=== PATIENT | female | born 1995 | race American Indian/Alaskan Native ===

== ENCOUNTER 2018-05-31 17:07 | Emergency (ER) | payer OTHER ==
[2018-05-31 17:08] VITALS: BMI 20.5
[2018-05-31 17:13] VITALS: BP 135/72; PULSE 82; RESP 20; TEMP 99; O2SAT 100
--- NOTE | 2018-05-31 17:37 | C.PDOC ---
History Of Present Illness 22 y/o female presents to the ED complaining of persistent pain to the right breast, ongoing for over 2 months. Patient recently was found to have a breast cyst, and had biopsy done in March with interventional radiologist Dr. Maldonado. Since then she reports persistent pain. She was initially referred by Dr. Guy, but patient has not followed up with Dr. Guy since then. Otherwise she denies any fevers, chills, nipple discharge, or other complaints. Time Seen by Provider: 05/31/18 17:21 Chief Complaint (Nursing): Breast Problem History Per: Patient History/Exam Limitations: no limitations Onset/Duration Of Symptoms: Days Current Symptoms Are (Timing): Still Present Past Medical History Reviewed: Historical Data, Nursing Documentation, Vital Signs Vital Signs: Last Vital Signs Temp 99 F 05/31/18 17:10 Pulse 82 05/31/18 17:10 Resp 20 05/31/18 17:10 BP 135/72 05/31/18 17:10 Pulse Ox 100 05/31/18 17:10 - Medical History PMH: Anxiety, Asthma, Bronchitis, Post Traumatic Stress Disorder, Seizures Denies: Chronic Kidney Disease Other PMH: PTSD Surgical History: No Surg Hx Family History: States: No Known Family Hx - Social History Hx Tobacco Use: No Hx Alcohol Use: No Hx Substance Use: No - Immunization History Hx Tetanus Toxoid Vaccination: No Hx Influenza Vaccination: No Hx Pneumococcal Vaccination: No Review Of Systems Constitutional: Negative for: Fever, Chills Cardiovascular: Negative for: Chest Pain Respiratory: Negative for: Shortness of Breath Musculoskeletal: Positive for: Other (Pain to right breast) Skin: Negative for: Rash Physical Exam - Physical Exam Appears: Non-toxic, No Acute Distress Skin: Warm, Dry, Other (cystic breast tissue noted to the right lateral breast, no obvious masses or nipple discharge; no change in skin color or lymphadenopathy; no focal tenderness) Head: Atraumatic, Normacephalic Eye(s): bilateral: Normal Inspection Oral Mucosa: Moist Neck: Supple Chest: No Deformity, No Tenderness Cardiovascular: Rhythm Regular, No Murmur Respiratory: Normal Breath Sounds, No Accessory Muscle Use, No Wheezing Extremity: Bilateral: Atraumatic, Normal Color And Temperature Neurological/Psych: Oriented x3, Normal Speech ED Course And Treatment O2 Sat by Pulse Oximetry: 100 (RA) Pulse Ox Interpretation: Normal Progress Note: Reassured patient there are no signs of acute infection at this time. Advised she needs to follow up with Dr. Guy for further evaluation. Yuly linda is agreeable to and understanding of discharge plan. Disposition - Disposition Referrals: Ernesto Guy MD [Staff Provider] - Disposition: HOME/ ROUTINE Disposition Time: 17:41 Condition: STABLE Additional Instructions: FOLLOW UP WITH BREAST BUCKLE ATTACHER WITHIN 1-2 DAYS. 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 - Scribe Statement The provider has reviewed the documentation as recorded by the Scribe (Dia Carbajal) All medical record entries made by the Scribe were at my direction and personally dictated by me. I have reviewed the chart and agree that the record accurately reflects my personal performance of the history, physical exam, medical decision making, and the department course for this patient. I have also personally directed, reviewed, and agree with the discharge instructions and disposition.
== END 2018-05-31 17:48 | disposition home or self-care (01) ==
LOC: C.ER 17:07
DX: N64.4 Mastodynia (principal)

== ENCOUNTER 2018-07-09 09:41 | Observation (INO) | payer OTHER ==
[2018-07-09 09:42] VITALS: BMI 20.5
[2018-07-09 10:19] LABS: BASO % 0.5 % (0.0-2.0); HEMOGLOBIN 11.9 g/dL (11.0-16.0); LYMPH # 1.4 K/uL (1.0-4.3); LYMPH % 32.7 % (20.0-40.0); MEAN CELL VOLUME 91.1 fL (81.0-99.0); MEAN CORPUSCULAR HGB CONC 34.1 g/dL (33.0-37.0); MEAN PLATELET VOLUME 8.4 fL (7.2-11.7); MONO # 0.5 K/uL (0.0-0.8); MONO % 11.9 % (0.0-10.0); NEUT # 2.4 K/uL (1.8-7.0); NEUT % 53.9 % (50.0-75.0); RBC 3.84 Mil/uL (3.80-5.20); RED CELL DISTRIBUTION WIDTH 14.7 % (11.5-14.5); WHITE BLOOD COUNT 4.4 K/uL (4.8-10.8)
--- NOTE | 2018-07-09 10:29 | C.PDOC ---
History Of Present Illness 22 y/o F c PMHx asthma p/w chest pain and dyspnea today. 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 Currently has chest pain, which is sharp and R parasternal, nonradiating. Denies fever, trauma, nausea, vomiting. Patient had syncopal episode in the past, intubated due to GCS less than 8, extubated 4 days later, state no found cause. Time Seen by Provider: 07/09/18 09:52 Chief Complaint (Nursing): Shortness Of Breath Past Medical History Vital Signs: Last Vital Signs Temp 99.3 F 07/09/18 09:50 Pulse 74 07/09/18 09:50 Resp 17 07/09/18 09:50 BP 132/81 07/09/18 09:50 Pulse Ox 99 07/09/18 09:50 - Medical History PMH: Anxiety, Asthma, Bronchitis, Post Traumatic Stress Disorder, Seizures Denies: Chronic Kidney Disease Family History: States: No Known Family Hx - Social History Hx Tobacco Use: No Hx Alcohol Use: No Hx Substance Use: No - Immunization History Hx Tetanus Toxoid Vaccination: No Hx Influenza Vaccination: No Hx Pneumococcal Vaccination: No Review Of Systems Except As Marked, All Systems Reviewed And Found Negative. Constitutional: Negative for: Fever Gastrointestinal: Negative for: Vomiting Physical Exam - Physical Exam Additional Physical Exam Comments: Constitutional: No acute distress. Head: Normocephalic. Atraumatic. Eyes: PERRL. ENT: Moist mucous membranes. Neck: Supple. Cardiovascular: Regular rate. Radial pulse 2+ bilaterally. Chest: Reproducible chest tenderness. Respiratory: Clear to auscultation bilaterally. GI: Soft. Nontender. Nondistended. Back: No CVA tenderness. Musculoskeletal: No tenderness or swelling of extremities.z Skin: No rash. Neurologic: Alert, no focal deficit. ED Course And Treatment - Laboratory Results Result Diagrams: 07/09/18 10:15 07/09/18 10:15 O2 Sat by Pulse Oximetry: 99 Medical Decision Making Medical Decision Making: EKG NSR 77 bpm, no ST/T wave changes. ASA administered. Dr. Elliott accepts patient for consultation, will obtain echo. Dr. Nettles accepts to medical service. FINDINGS: LINES AND TUBES: None. LUNG AND PLEURA: The lungs are well inflated and clear. No pleural effusion or pneumothorax. HEART AND MEDIASTINUM: The heart is not enlarged. No aortic atherosclerotic calcification present. The hilar and mediastinal contours are within normal limits. SKELETAL STRUCTURES: The bony structures are within normal limits for the patient's age. VISUALIZED UPPER ABDOMEN: Normal. OTHER FINDINGS: None. IMPRESSION: No active pulmonary disease. Disposition - Disposition Disposition: HOSPITALIZED Disposition Time: 10:53 Condition: FAIR Forms: [employer] (Amharic) - POA Core Measure Indicators: Chest Pain - Clinical Impression Clinical Impression: Dyspnea, Chest pain
[2018-07-09 10:32] LABS: ALB/GLOB RATIO 1.3 (1.0-2.1); ALBUMIN 4.2 g/dL (3.5-5.0); ALT/SGPT 19 U/L (9-52); AST/SGOT 19 U/L (14-36); BLOOD UREA NITROGEN 8 mg/dL (7-17); CALCIUM 8.9 mg/dl (8.6-10.4); GFR NON-AFRICAN AMERICAN > 60; INR 1.2; PARTIAL THROMBOPLASTIN TIME 31 SECONDS (21-34); PROTHROMBIN TIME 12.7 SECONDS (9.7-12.2)
[2018-07-09 10:41] LABS: B-TYPE NATRIURETIC PEPTIDE 37.3 pg/mL (0-450)
[2018-07-09 10:48] LABS: CK-MB < 0.22 ng/mL (0.0-3.38)
--- NOTE | 2018-07-09 10:52 | RAD ---
Date of service: 07/09/2018 HISTORY: Dyspnea COMPARISON: 04/04/2016 TECHNIQUE: Chest PA and lateral FINDINGS: LINES AND TUBES: None. LUNG AND PLEURA: The lungs are well inflated and clear. No pleural effusion or pneumothorax. HEART AND MEDIASTINUM: The heart is not enlarged. No aortic atherosclerotic calcification present. The hilar and mediastinal contours are within normal limits. SKELETAL STRUCTURES: The bony structures are within normal limits for the patient's age. VISUALIZED UPPER ABDOMEN: Normal. OTHER FINDINGS: None. IMPRESSION: No active pulmonary disease.
[2018-07-09 10:57] LABS: D DIMER < 200 ng/mlDDU (0-243)
[2018-07-09 11:04] LABS: SQUAMOUS EPITHIAL 2 /hpf (0-5); URINE BILIRUBIN NEGATIVE (NEGATIVE); URINE BLOOD NEGATIVE (NEGATIVE); URINE CLARITY Clear (Clear); URINE COLOR Yellow (YELLOW); URINE GLUCOSE (UA) NORMAL (Normal); URINE LEUKOCYTE ESTERASE NEG Leu/uL (Negative); URINE PROTEIN NEGATIVE (NEGATIVE); URINE UROBILINOGEN NORMAL mg/dL (0.2-1.0)
[2018-07-09 11:07] LABS: HCG,QUALITATIVE URINE NEGATIVE (NEGATIVE)
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
--- NOTE | 2018-07-09 14:14 | CP.PCM.HP ---
History of Present Illness - History of Present Illness History of Present Illness: 22 years old woman admitted with chest pain and shortness of breath during 3 minutes of stress test today. Patient was being evaluated for chest pain and shortness of breath as an outpatient stress test and patient got acutely short o f breath during the stress test stress test was terminated there was no any acute ST-T changes. Patient was evaluated in the ER chest x-ray did not show any pneumothorax. Patient had been complaining of chest pain or palpitation for quite some time. Patient has a history of asthma and has been admitted in the hospital and danis required intubation. Patient also has a history of posttraumatic stress syndrome and has been seeing a psychiatrist. Patient also has a severe anxiety and panic attacks. There is no history of sickle cell. Present on Admission - Present on Admission Any Indicators Present on Admission: No Review of Systems - Review of Systems All systems: reviewed and no additional remarkable complaints except (shortness of breath wheezing and atypical chest pain) Past Patient History - Past Medical History & Family History Past Medical History?: Yes - Past Social History Smoking Status: Never Smoked - CARDIAC Hx Cardiac Disorders: No - PULMONARY Hx Asthma: Yes Hx Bronchitis: Yes - NEUROLOGICAL Hx Seizures: Yes - HEENT Hx HEENT Problems: No - RENAL Hx Chronic Kidney Disease: No - ENDOCRINE/METABOLIC Hx Endocrine Disorders: No - HEMATOLOGICAL/ONCOLOGICAL Hx Blood Disorders: No Hx Blood Transfusions: No - INTEGUMENTARY Hx Dermatological Problems: No - MUSCULOSKELETAL/RHEUMATOLOGICAL Hx Musculoskeletal Disorders: No Hx Falls: No - GASTROINTESTINAL Hx Gastrointestinal Disorders: No - PSYCHIATRIC Hx Anxiety: Yes Hx Post Traumatic Stress Disorder: Yes Hx Substance Use: No - SURGICAL HISTORY Hx Surgeries: No - ANESTHESIA Hx Anesthesia: No Hx Anesthesia Reactions: No Hx Malignant Hyperthermia: No Meds Allergies/Adverse Reactions: Allergies Allergy/AdvReac Type Severity Reaction Status Date / Time albuterol AdvReac Intermediate Verified 05/31/18 17:14 Physical Exam - Constitutional Appears: Well - Head Exam Head Exam: ATRAUMATIC, NORMAL INSPECTION, NORMOCEPHALIC - Eye Exam Eye Exam: EOMI, Normal appearance, PERRL Pupil Exam: NORMAL ACCOMODATION, PERRL - ENT Exam ENT Exam: Mucous Membranes Moist, Normal Exam - Neck Exam Neck exam: Positive for: Normal Inspection - Respiratory Exam Respiratory Exam: Clear to Auscultation Bilateral, Rhonchi, NORMAL BREATHING PATTERN - Cardiovascular Exam Cardiovascular Exam: REGULAR RHYTHM - GI/Abdominal Exam GI & Abdominal Exam: Normal Bowel Sounds, Soft. absent: Tenderness - Extremities Exam Extremities exam: Positive for: normal inspection - Back Exam Back exam: NORMAL INSPECTION Results - Vital Signs Recent Vital Signs: Last Vital Signs Temp 98.5 F 07/09/18 13:25 Pulse 72 07/09/18 13:25 Resp 12 07/09/18 13:25 BP 114/72 07/09/18 13:25 Pulse Ox 97 07/09/18 13:25 - Labs Result Diagrams: 07/09/18 10:15 07/09/18 10:15 Labs: Laboratory Results - last 24 hr 07/09/18 07/09/18 07/09/18 10:15 10:15 10:15 WBC 4.4 L RBC 3.84 Hgb 11.9 Hct 34.9 MCV 91.1 MCH 31.0 MCHC 34.1 RDW 14.7 H Plt Count 186 MPV 8.4 Neut % (Auto) 53.9 Lymph % (Auto) 32.7 [place] % (Auto) 11.9 H Eos % (Auto) 1.0 Baso % (Auto) 0.5 Neut # (Auto) 2.4 Lymph # (Auto) 1.4 [place] # (Auto) 0.5 Eos # (Auto) 0.0 Baso # (Auto) 0.0 PT 12.7 H INR 1.2 APTT 31 D-Dimer, Quantitative < 200 Sodium 140 Potassium 4.2 Chloride 103 Carbon Dioxide 27 Anion Gap 13 BUN 8 Creatinine 0.7 Est GFR ( Amer) > 60 Est GFR (Non-Af Amer) > 60 Random Glucose 81 Calcium 8.9 Total Bilirubin 0.4 AST 19 ALT 19 Alkaline Phosphatase 55 Total Creatine Kinase 84 CK-MB (Mass) < 0.22 Troponin I < 0.0120 NT-Pro-B Natriuret Pep 37.3 Total Protein 7.6 Albumin 4.2 Globulin 3.4 Albumin/Globulin Ratio 1.3 Urine Color Urine Clarity Urine pH Ur Specific [place] Urine Protein Urine Glucose (UA) Urine Ketones Urine Blood Urine Nitrate Urine Bilirubin Urine Urobilinogen Ur Leukocyte Esterase Urine WBC (Auto) Urine RBC (Auto) Ur Squamous Epith Cells Urine HCG, Qual 07/09/18 10:45 WBC RBC Hgb Hct MCV MCH MCHC RDW Plt Count MPV Neut % (Auto) Lymph % (Auto) [place] % (Auto) Eos % (Auto) Baso % (Auto) Neut # (Auto) Lymph # (Auto) [place] # (Auto) Eos # (Auto) Baso # (Auto) PT INR APTT D-Dimer, Quantitative Sodium Potassium Chloride Carbon Dioxide Anion Gap BUN Creatinine Est GFR ( Amer) Est GFR (Non-Af Amer) Random Glucose Calcium Total Bilirubin AST ALT Alkaline Phosphatase Total Creatine Kinase CK-MB (Mass) Troponin I NT-Pro-B Natriuret Pep Total Protein Albumin Globulin Albumin/Globulin Ratio Urine Color Yellow Urine Clarity Clear Urine pH 5.0 Ur Specific [place] 1.017 Urine Protein Negative Urine Glucose (UA) Normal Urine Ketones Negative Urine Blood Negative Urine Nitrate Negative Urine Bilirubin Negative Urine Urobilinogen Normal Ur Leukocyte Esterase Neg Urine WBC (Auto) 1 Urine RBC (Auto) < 1 Ur Squamous Epith Cells 2 Urine HCG, Qual Negative Assessment & Plan (1) Chest pain Status: Acute Comment: we will consult with Dr. Castro her cardiolo and do further cardiac (2) Asthma Status: Acute Comment: pulmonary consult on board. Continue bronchodilatords
[2018-07-09 15:51] VITALS: RESP 20
[2018-07-09] MEDS: MethylPREDNISolone 40 mg Vial IVP SCH ×2 (16:08→22:16)
[2018-07-09] MEDS: Ipratropium 0.02% Inhal Soln (0.5 mg/2.5 ml) UD IH SCH (19:56)
--- NOTE | 2018-07-09 22:02 | CP.PCM.PN ---
Subjective - Date & Time of Evaluation Date of Evaluation: 07/09/18 Time of Evaluation: 21:59 - Subjective Subjective: Patient admitted for severe dyspnea during the stress test ECHO and labs unremarkable Patient has hx of Asthma likely Asthma exacerbation No further cardiac work up at this time Will follow Objective - Vital Signs/Intake and Output Vital Signs (last 24 hours): Temp Pulse Resp BP Pulse Ox 98.2 F 89 20 113/76 98 07/09/18 15:00 07/09/18 19:57 07/09/18 15:00 07/09/18 15:00 07/09/18 15:35 - Medications Medications: Current Medications Ipratropium [place] (Atrovent) 0.5 mg IH RQ6 [facility] Last Admin: 07/09/18 19:56 Dose: 0.5 mg Methylprednisolone (Solu-Medrol) 40 mg IVP Q8 [facility] Last Admin: 07/09/18 16:08 Dose: 40 mg Pantoprazole Sodium (Protonix Inj) 40 mg IVP DAILY [facility] Last Admin: 07/09/18 16:08 Dose: 40 mg - Labs Labs: 07/09/18 10:15 07/09/18 10:15 PT 12.7 SECONDS (9.7-12.2) H 07/09/18 10:15 INR 1.2 07/09/18 10:15 APTT 31 SECONDS (21-34) 07/09/18 10:15
[2018-07-10] MEDS: Ipratropium 0.02% Inhal Soln (0.5 mg/2.5 ml) UD IH SCH ×3 (01:22→13:40)
[2018-07-10] MEDS: MethylPREDNISolone 40 mg Vial IVP SCH ×2 (06:01→14:55)
[2018-07-10 07:57] VITALS: BP 104/57; TEMP 98.5; O2SAT 100
[2018-07-10 08:19] VITALS: PULSE 81
--- NOTE | 2018-07-10 13:06 | PCM.PSYCH ---
Initial Psychiatric Evaluation - Initial Psychiatric Evaluation Type of Admission: Voluntary Legal Status: Capacity Current Medications: Active Medications Generic Name Dose Route Start Last Admin Trade Name Freq PRN Reason Stop Dose Admin Ipratropium [place] 0.5 mg 07/09/18 13:15 07/10/18 09:26 Atrovent IH 0.5 mg RQ6 [facility] Administration Methylprednisolone 40 mg 07/09/18 14:00 07/10/18 06:01 Solu-Medrol IVP 40 mg Q8 [facility] Administration Pantoprazole Sodium 40 mg 07/09/18 13:15 07/10/18 09:47 Protonix Inj IVP 40 mg DAILY [facility] Administration Past Psychiatric History - Past Psychiatric History Pertinent Medical Hx (Current Medical&Sleep Prob, Allergies): Allergies Allergy/AdvReac Type Severity Reaction Status Date / Time albuterol AdvReac Intermediate Verified 05/31/18 17:14 Levalbuterol [Xopenex] 1.25 mg IH DAILY 05/31/18 Meloxicam 7.5 mg PO DAILY 07/09/18
--- NOTE | 2018-07-10 14:30 | CP.PCM.PN ---
Subjective - Date & Time of Evaluation Date of Evaluation: 07/10/18 Time of Evaluation: 14:29 - Subjective Subjective: patient appears to have a flat affect. Occasionally complains of atypical chest pain and shortness of breath. Cardiac workup is negative. Awaiting psych evaluation and continue bronchodilators Objective - Vital Signs/Intake and Output Vital Signs (last 24 hours): Temp Pulse Resp BP Pulse Ox 98.5 F 81 20 104/57 L 100 07/10/18 07:00 07/10/18 07:31 07/10/18 07:00 07/10/18 07:00 07/10/18 10:00 Intake and Output: 07/10/18 07/10/18 11:59 23:59 Intake Total 300 Balance 300 - Medications Medications: Current Medications Ipratropium [place] (Atrovent) 0.5 mg IH RQ6 [facility] Last Admin: 07/10/18 09:26 Dose: 0.5 mg Lorazepam (Ativan) 0.5 mg PO Q6H PRN PRN Reason: severe anxiety Methylprednisolone (Solu-Medrol) 40 mg IVP Q8 [facility] Last Admin: 07/10/18 06:01 Dose: 40 mg Pantoprazole Sodium (Protonix Inj) 40 mg IVP DAILY [facility] Last Admin: 07/10/18 09:47 Dose: 40 mg Trazodone HCl (Desyrel) 50 mg PO HS PRN PRN Reason: Insomnia - Labs Labs: 07/09/18 10:15 07/09/18 10:15 PT 12.7 SECONDS (9.7-12.2) H 07/09/18 10:15 INR 1.2 07/09/18 10:15 APTT 31 SECONDS (21-34) 07/09/18 10:15 Assessment and Plan (1) Chest pain Status: Acute (2) Asthma Status: Acute
--- NOTE | 2018-07-10 14:43 | CARD ---
APPROVED REPORT Date of service: 07/09/2018 EXAM: Two-dimensional and M-mode echocardiogram with Doppler and color Doppler. Other Information Quality : [employer] : INDICATION Dyspnea Chest Pain Palpitations 2D DIMENSIONS IVSd1.0 (0.7-1.1cm)LVDd4.1 (3.9-5.9cm) PWd0.9 (0.7-1.1cm)LA [id number] (18-58mL) LVDs2.4 (2.5-4.0cm)FS (%) 40.9 % LVEF (%)72.2 (>50%)LVEF ([facility]on's)65.35 % IVC0.00 cm M-Mode DIMENSIONS RVDd1.72 (2.1-3.2cm)Left Atrium (MM)3.59 (2.5-4.0cm) IVSd0.79 (0.7-1.1cm)Aortic Root2.00 (2.2-3.7cm) LVDd4.88 (4.0-5.6cm)Aortic Cusp Exc.1.70 (1.5-2.0cm) PWd1.02 (0.7-1.1cm)FS (%) 52 % LVDs2.34 (2.0-3.8cm)LVEF (%)75 (>50%) Mitral Valve MV E Gdhaxezk019.2cm/sMV A Abhcmkjd46.3cm/sE/A ratio2.3 TDI Lateral E' Peak V19.65cm/sMedial E' Peak V15.71cm/sE/Lateral E'5.4 E/Medial E'6.7 Tricuspid Valve TR Peak [id number]/sTR Peak Gr.[id number] LEFT VENTRICLE The left ventricle is normal size. There is normal left ventricular wall thickness. The Ejection Fraction is 65-70%. There is normal LV segmental wall motion. The left ventricular diastolic function is normal. AORTIC VALVE The aortic valve is normal in structure. No aortic regurgitation is present. MITRAL VALVE The mitral valve is normal in structure. Mitral regurgitation is trace. TRICUSPID VALVE The tricuspid valve is normal in structure. There is mild tricuspid regurgitation. Right ventricular systolic pressure is estimated at 20 mmHg. There is no pulmonary hypertension. PULMONIC VALVE The pulmonary valve is normal in structure. There is mild pulmonic valvular regurgitation. GREAT VESSELS The aortic root is normal in size. ivc saundra normal size but poor inspiratory collapse, PERICARDIAL EFFUSION There is no pericardial effusion. <Conclusion> Mitral regurgitation is trace. There is mild tricuspid regurgitation. Right ventricular systolic pressure is estimated at 20 mmHg. There is no pulmonary hypertension. The aortic root is normal in size. ivc saundra normal size but poor inspiratory collapse, There is no pericardial effusion. The left ventricle is normal size. The Ejection Fraction is 65-70%.
--- NOTE | 2018-07-10 16:05 | CP.PCM.PN ---
Subjective - Date & Time of Evaluation Date of Evaluation: 07/10/18 Time of Evaluation: 16:02 - Subjective Subjective: Feeling better, no SOB or palpitation. Objective - Vital Signs/Intake and Output Vital Signs (last 24 hours): Temp Pulse Resp BP Pulse Ox 98.5 F 81 20 104/57 L 100 07/10/18 07:00 07/10/18 07:31 07/10/18 07:00 07/10/18 07:00 07/10/18 10:00 Intake and Output: 07/10/18 07/10/18 06:59 18:59 Intake Total 300 Balance 300 - Medications Medications: Current Medications Ipratropium [place] (Atrovent) 0.5 mg IH RQ6 [facility] Last Admin: 07/10/18 13:40 Dose: 0.5 mg Lorazepam (Ativan) 0.5 mg PO Q6H PRN PRN Reason: severe anxiety Methylprednisolone (Solu-Medrol) 40 mg IVP Q8 [facility] Last Admin: 07/10/18 14:55 Dose: 40 mg Pantoprazole Sodium (Protonix Inj) 40 mg IVP DAILY [facility] Last Admin: 07/10/18 09:47 Dose: 40 mg Trazodone HCl (Desyrel) 50 mg PO HS PRN PRN Reason: Insomnia - Labs Labs: 07/09/18 10:15 07/09/18 10:15 PT 12.7 SECONDS (9.7-12.2) H 07/09/18 10:15 INR 1.2 07/09/18 10:15 APTT 31 SECONDS (21-34) 07/09/18 10:15 - Head Exam Head Exam: NORMOCEPHALIC - Neck Exam Neck Exam: Normal Inspection - Respiratory Exam Respiratory Exam: NORMAL BREATHING PATTERN - Cardiovascular Exam Cardiovascular Exam: REGULAR RHYTHM - Extremities Exam Extremities Exam: Normal Inspection - Neurological Exam Neurological Exam: Alert, Oriented x3 Assessment and Plan (1) Chest pain Assessment & Plan: No new episodes, most likely anxiety a component. Patient wants to go home and no immediate work-up needed at this time. If no other issues may D/C home from cardiac point. Follow-up as out patient. Status: Acute (2) Dyspnea Assessment & Plan: Mostly secondary to Asthma, treat underlying cause. Status: Acute
--- NOTE | 2018-07-11 16:46 | CP.PCM.DIS ---
Provider - Provider Date of Admission: 07/09/18 10:54 Attending physician: Ritchie Nettles MD Consults: 07/09/18 10:53 Cardiology Consult Stat Comment: Consulting Provider: Stephon Elliott Consulting Physician: Stephon Elliott Reason for Consult: chest pain, dyspnea 07/09/18 13:07 Psychiatry Consult Routine Comment: Consulting Provider: Brian Salmeron Consulting Physician: Brian Salmeron Reason for Consult: anxiety/PTSD 07/10/18 15:52 Cardiology Consult Routine Comment: Consulting Provider: Franchesca Garvin Consulting Physician: Franchesca Garvin Reason for Consult: [employer]IST DR. ELLIOTT Time Spent in preparation of Discharge (in minutes): 35 Diagnosis - Discharge Diagnosis (1) Chest pain Status: Acute (2) Asthma Status: Acute Hospital Course - Lab Results Lab Results: Micro Results 07/09/18 10:45 Urine Urine Culture - Final No Growth (<1,000 CFU/ML) Most Recent Lab Values WBC 4.4 K/uL (4.8-10.8) L 07/09/18 10:15 RBC 3.84 Mil/uL (3.80-5.20) 07/09/18 10:15 Hgb 11.9 g/dL (11.0-16.0) 07/09/18 10:15 Hct 34.9 % (34.0-47.0) 07/09/18 10:15 MCV 91.1 fL (81.0-99.0) 07/09/18 10:15 MCH 31.0 pg (27.0-31.0) 07/09/18 10:15 MCHC 34.1 g/dL (33.0-37.0) 07/09/18 10:15 RDW 14.7 % (11.5-14.5) H 07/09/18 10:15 Plt Count 186 K/uL (130-400) 07/09/18 10:15 MPV 8.4 fL (7.2-11.7) 07/09/18 10:15 Neut % (Auto) 53.9 % (50.0-75.0) 07/09/18 10:15 Lymph % (Auto) 32.7 % (20.0-40.0) 07/09/18 10:15 [place] % (Auto) 11.9 % (0.0-10.0) H 07/09/18 10:15 Eos % (Auto) 1.0 % (0.0-4.0) 07/09/18 10:15 Baso % (Auto) 0.5 % (0.0-2.0) 07/09/18 10:15 Neut # (Auto) 2.4 K/uL (1.8-7.0) 07/09/18 10:15 Lymph # (Auto) 1.4 K/uL (1.0-4.3) 07/09/18 10:15 [place] # (Auto) 0.5 K/uL (0.0-0.8) 07/09/18 10:15 Eos # (Auto) 0.0 K/uL (0.0-0.7) 07/09/18 10:15 Baso # (Auto) 0.0 K/uL (0.0-0.2) 07/09/18 10:15 PT 12.7 SECONDS (9.7-12.2) H 07/09/18 10:15 INR 1.2 07/09/18 10:15 APTT 31 SECONDS (21-34) 07/09/18 10:15 D-Dimer, Quantitative < 200 ng/mlDDU (0-243) 07/09/18 10:15 Sodium 140 mmol/L (132-148) 07/09/18 10:15 Potassium 4.2 mmol/L (3.6-5.2) 07/09/18 10:15 Chloride 103 mmol/L (98-107) 07/09/18 10:15 Carbon Dioxide 27 mmol/L (22-30) 07/09/18 10:15 Anion Gap 13 (10-20) 07/09/18 10:15 BUN 8 mg/dL (7-17) 07/09/18 10:15 Creatinine 0.7 mg/dL (0.7-1.2) 07/09/18 10:15 Est GFR ( Amer) > 60 07/09/18 10:15 Est GFR (Non-Af Amer) > 60 07/09/18 10:15 Random Glucose 81 mg/dL (65-105) 07/09/18 10:15 Calcium 8.9 mg/dl (8.6-10.4) 07/09/18 10:15 Total Bilirubin 0.4 mg/dL (0.2-1.3) 07/09/18 10:15 AST 19 U/L (14-36) 07/09/18 10:15 ALT 19 U/L (9-52) 07/09/18 10:15 Alkaline Phosphatase 55 U/L (38-126) 07/09/18 10:15 Total Creatine Kinase 84 U/L (30-135) 07/09/18 10:15 CK-MB (Mass) < 0.22 ng/mL (0.0-3.38) 07/09/18 10:15 Troponin I < 0.0120 ng/mL (0.00-0.120) 07/09/18 10:15 NT-Pro-B Natriuret Pep 37.3 pg/mL (0-450) 07/09/18 10:15 Total Protein 7.6 g/dL (6.3-8.3) 07/09/18 10:15 Albumin 4.2 g/dL (3.5-5.0) 07/09/18 10:15 Globulin 3.4 gm/dL (2.2-3.9) 07/09/18 10:15 Albumin/Globulin Ratio 1.3 (1.0-2.1) 07/09/18 10:15 Urine Color Yellow (YELLOW) 07/09/18 10:45 Urine Clarity Clear (Clear) 07/09/18 10:45 Urine pH 5.0 (5.0-8.0) 07/09/18 10:45 Ur Specific [place] 1.017 (1.003-1.030) 07/09/18 10:45 Urine Protein Negative mg/dL (NEGATIVE) 07/09/18 10:45 Urine Glucose (UA) Normal mg/dL (Normal) 07/09/18 10:45 Urine Ketones Negative mg/dL (NEGATIVE) 07/09/18 10:45 Urine Blood Negative (NEGATIVE) 07/09/18 10:45 Urine Nitrate Negative (NEGATIVE) 07/09/18 10:45 Urine Bilirubin Negative (NEGATIVE) 07/09/18 10:45 Urine Urobilinogen Normal mg/dL (0.2-1.0) 07/09/18 10:45 Ur Leukocyte Esterase Neg Edy/uL (Negative) 07/09/18 10:45 Urine WBC (Auto) 1 /hpf (0-5) 07/09/18 10:45 Urine RBC (Auto) < 1 /hpf (0-3) 07/09/18 10:45 Ur Squamous Epith Cells 2 /hpf (0-5) 07/09/18 10:45 Urine HCG, Qual Negative (NEGATIVE) 07/09/18 10:45 - Hospital Course Hospital Course: 22 years old woman admitted with chest pain and shortness of breath during 3 minutes of stress test today. Patient was being evaluated for chest pain and shortness of breath as an outpatient stress test and patient got acutely short of breath during the stress test stress test was terminated there was no any acute ST-T changes. Patient was evaluated in the ER chest x-ray did not show any pneumothorax. Patient had been complaining of chest pain or palpitation for quite some time. Patient has a history of asthma and has been admitted in the hospital and danis required intubation. Patient also has a history of posttraumatic stress syndrome and has been seeing a psychiatrist. Patient also has a severe anxiety and panic attacks. There is no history of sickle cell. Cardiology pulmonary consults were obtained also patient had a psychiatric evaluation after consultation with different consultants patient was treated with bronchodilators improved and all the treating physician agreed that patient can be discharged followed outpatient. Cardiac workup preliminary were negative. - Date & Time of H&P Date of H&P: 07/11/18 Discharge Exam - Head Exam Head Exam: NORMOCEPHALIC Discharge Plan - Follow Up Plan Condition: FAIR Disposition: HOME/ ROUTINE Instructions: Shortness of Breath (Dyspnea) (DC), Chest Pain (DC)
--- NOTE | 2018-07-12 09:35 | CARD ---
APPROVED REPORT Date of service: 07/09/2018 EKG Measurement Heart [id number] <Conclusion> Normal sinus rhythm Normal ECG
== END 2018-07-10 17:21 | disposition home or self-care (01) ==
LOC: C.ER 09:41 → C.9E 10:54 → C.6T 13:11
PROVIDERS: ADMIT Internal Medicine Cardiovascular Disease; ATTEND Internal Medicine Cardiovascular Disease
DX: R07.9 Chest pain, unspecified (principal); J45.909 Unspecified asthma, uncomplicated; F41.0 Panic disorder [episodic paroxysmal anxiety]; F43.10 Post-traumatic stress disorder, unspecified; Z82.5 Family history of asthma and other chronic lower respiratory diseases
CPT/HCPCS: 71046; 80053; 81001; 82550; 82553; 83880; 84484; 84703; 85025; 85378; 85610; 85730; 87086; 93306; 94640; 94760; 99285; C9113; G0378; J2920

== ENCOUNTER 2018-09-06 13:57 | Outpatient (CLI) | payer OTHER | END 2018-09-06 13:58 | disposition home or self-care (01) | LOC: C.CTH 13:58 | DX: R51 Headache (principal); E55.9 Vitamin D deficiency, unspecified ==

== ENCOUNTER 2018-09-13 11:26 | Outpatient (CLI) | payer OTHER | END 2018-09-13 11:27 | disposition home or self-care (01) | LOC: C.LAB 11:26 | DX: E55.9 Vitamin D deficiency, unspecified (principal) ==

== ENCOUNTER 2018-09-24 10:07 | Outpatient (CLI) | payer OTHER | END 2018-09-24 10:08 | disposition home or self-care (01) | LOC: C.LAB 10:07 | DX: R82.71 Bacteriuria (principal) ==

== ENCOUNTER 2018-11-24 12:22 | Outpatient (CLI) | payer OTHER | END 2018-11-24 12:23 | disposition home or self-care (01) | LOC: C.LAB 12:22 | DX: E55.9 Vitamin D deficiency, unspecified (principal) ==